=== PATIENT | female | born 1965 | race Caucasian/White ===

== ENCOUNTER → 2019-09-24 12:02 | Outpatient (BNVA) | payer OTHER, SELFPAY | PROVIDERS: Visit Provider Nurse Practitioner Family | DX: J02.9 Acute pharyngitis, unspecified (principal); R05 Cough; J06.9 Acute upper respiratory infection, unspecified; Z20.828 Contact with and (suspected) exposure to other viral communicable diseases | CPT/HCPCS: 87071; 87400; 87635; 87880 ==

== ENCOUNTER 2020-03-04 07:30 | Emergency (ER) | payer SELFPAY ==
[2020-03-04 07:32] VITALS: BP 126/77; PULSE 110; RESP 20; TEMP 36.5; O2SAT 99; BMI 20.5
--- NOTE | 2020-03-04 07:46 | ECG_ITS ---
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 Measurements Intervals [facility] Rate: 98 P: AK: -1 QRS: 76 QRSD: 86 T: 81 QT: 336 QTc: 430 Interpretive Statements Sinus rhythm ABNORMAL RHYTHM ECG No previous ECG available for comparison Electronically Signed On 03-04-2020 10:34:52 CDT by Kelvin Loazno M.D. [email or web address]
--- NOTE | 2020-03-04 07:50 | W.ED.CHESTPA ---
HPI - Chest Pain General: Chief Complaint: Chest Pain Stated Complaint: CHEST PAIN Time Seen by Provider: 03/04/20 07:36 Source: patient Mode of arrival: ambulatory Limitations: no limitations History of Present Illness: HPI narrative: flu like symptoms on Fri (4 days ago) with intermittent nausea, CP this AM and right arm pain MD complaint: chest pain Onset (ago): day(s) (1) Quality: tightness Associated symptoms: Reports fever(s) (2 days ago ) and nausea (intermittent ); Deny abdominal pain, diaphoresis or dyspnea Review of Systems Const: Reports: fever(s) (2 days ago ); Denies: diaphoresis ENMT: Denies: throat pain Card: Reports: chest pain Resp: Denies: dyspnea GI: Reports: nausea (intermittent ); Denies: abdominal pain Neuro: Reports: numbness in extremities (right arm (resolved) ); Denies: headache(s) PFSH ED PFSH: Social History Smoking and tobacco status: current every day smoker Alcohol intake: current Physical Exam Const: COMMON NORMALS: no acute distress, patient oriented x3, no limitations and alert GENERAL APPEARANCE: cooperative and comfortable ORIENTATION/CONSCIOUSNESS: Yes awake, Yes oriented to person, Yes oriented to place and Yes oriented to time HENMT: COMMON NORMALS: normocephalic, atraumatic, external ears normal, EAC's normal, TM's normal bilaterally and Normal external nose present HEAD & SCALP: normal to inspection, normocephalic and atraumatic FACE & SINUS: normal facial exam, sinuses nontender and face symmetric NOSE: Normal external nose present, Normal nares present and No nasal discharge present EXTERNAL EAR: Yes external ears normal EXTERNAL AUDITORY CANAL: EAC's normal TYMPANIC MEMBRANE: TM's normal bilaterally MOUTH: Normal oral and palatal mucosa present, lip normal and tongue normal THROAT: posterior oropharynx normal, tonsils normal and uvula midline Eye: COMMON NORMALS: Equal, round and reactive pupils present, EOMs intact bilaterally and conjunctivae normal GENERAL EYE: appearance normal, both eyes and all related structures and normal light reflex EYELID: eyelids normal CONJUNCTIVA: Yes conjunctivae normal PUPIL: Yes Equal, round and reactive pupils present EOM: Yes EOM abnormal DIRECT OPHTHALMOSCOPY: Yes normal light reflex Neck/C-Spine: COMMON NORMALS: full ROM, no lymphadenopathy, supple, no meningeal signs, no JVD and Thyroid normal GENERAL: Yes normal visual inspection THYROID: Thyroid normal CERVICAL SPINE: Yes cervical ROM normal and Yes normal cervical lordosis Lymph: LYMPHATIC: no lymphadenopathy noted Chest: COMMONS NORMALS: normal inspection of the chest and normal palpation of entire chest wall Resp: COMMON NORMALS: normal respiratory effort, No retractions and clear to auscultation bilaterally AUSCULTATION: clear to auscultation bilaterally Cardio: COMMON NORMALS: no JVD, regular rate, regular rhythm, S1 normal heart sound present, S2 normal heart sound present, No gallops present (Cardio), No clicks present (Cardio), No murmurs present (Cardio), No rub (Cardio) and Peripheral pulses 2+ throughout RATE: regular rate RHYTHM: regular rhythm HEART SOUNDS: S1 normal heart sound present and S2 normal heart sound present PERIPHERAL PULSES: Peripheral pulses 2+ throughout GI: COMMON NORMALS: Normal to inspection, nondistended, normoactive bowel sounds present, Soft to palpation, non-tender and no masses PALPATION: Yes Soft to palpation : COMMON NORMALS: Yes no CVA tenderness and Yes normal external appearance BLADDER/KIDNEY EXAM: Yes no CVA tenderness Back/Pelvis: COMMON NORMALS: no CVA tenderness, thoracic and lumbar spine normal to inspection, no thoracic nor lumbar tenderness and thoraco-lumbar ROM normal Extremity: COMMON NORMALS: normal to inspection, full ROM, capillary refill normal, no joint enlargement, no clubbing, cyanosis or edema, no calf tenderness and no pedal edema GENERAL: Yes normal exam except as noted Neuro: COMMON NORMALS: patient oriented x3, moves all extremities, no focal motor deficits, no sensory deficits noted and gait normal SENSORIUM/ORIENTATION: Yes alert, Yes oriented to person, Yes oriented to place and Yes oriented to time MENINGEAL SIGNS: Yes no meningeal signs Psych: COMMON NORMALS: mental status grossly normal, Normal thought process present, cooperative, normal affect, speech normal and activity/motor behavior normal SPEECH: Yes normal speech THOUGHT PROCESS: Normal thought process present Skin: COMMON NORMALS: no rashes or lesions noted, no wounds and turgor normal GENERAL SKIN EXAM: no rashes or lesions noted and turgor normal Course ED course: Pt developed myalgias on Tue with a low grade fever on Tuesday. Tuesday she states some arm numbness and CP and this morning CP is much worse upon presentation to the ER. Pt is notably anxious but appropriately for situation. Will do cardiac work up and rule out covid and flu as pt was exposed at a on of last week. Reevaluation(s): Reevaluation #1: Pt Trop is 6; CP has not resolved completely but pt continues to have myalgias diffusely. COVID rapid negative and Flu negative. Will do PCT send off for COVID and advise to remain at home until results are back. Glucose 194. Pt does not have known diabetes. Likely new diagnosis. Will refer to PCP for further testing. Awaiting second trop to decide if able to DC. At this time DC to home is likely. Time: 09:23 Reevaluation #2: Second trop remains at 6. CXR shows some emphysema changes. Likely viral illness and awaiting COVID PCT to be resulted. Pt sees Dr. Beasley tomorrow at 1300 as new pt. Will continue with discharge and advise to return if feeling worse or CP returns. Time: 10:22 Vital Signs: Vital signs: Vital Signs Temperature 97.7 F 03/04/20 07:32 Pulse Rate 87 03/04/20 09:45 Respiratory Rate 15 03/04/20 09:45 Blood Pressure 118/70 03/04/20 09:45 Pulse Oximetry 98 03/04/20 09:45 MDM - Chest Pain Lab Data: Labs: Lab Results 03/04/20 03/04/20 03/04/20 Range/Units 07:41 07:41 07:41 WBC 3.4 L (4.0-10.0) 10^3/ uL RBC 4.99 (4.1-5.3) 10^6/u L Hgb 14.9 (11.5-15.3) g/dL Hct 45.5 (37.0-47.0) % MCV 91.2 (81-99) fL MCH 29.9 (28.0-34.0) pg MCHC 32.7 (30.0-36.0) g/dL RDW 13.2 (12.1-15.1) % Plt Count 103 L (130-400) 10^3/c mm MPV 11.6 H (7.4-10.4) fL Neut % (Auto) 67.4 % Lymph % (Auto) 27.6 % [place] % (Auto) 4.7 % Eos % (Auto) 0.0 % Baso % (Auto) 0.3 % Neut # (Auto) 2.29 (1.8-7.7) 10^3/u L Lymph # (Auto) 0.9 (0.8-4.8) 10^3/u L [place] # (Auto) 0.2 (0.2-0.9) 10^3/u L Eos # (Auto) 0.0 (0.0-0.8) 10^3/u L Baso # (Auto) 0.0 (0.0-0.1) 10^3/u L Nucleated RBC % (a uto) 0 % Nucleated RBCs # 0.0 /100WBC Sodium 135 L (136-145) mmol/L Potassium 3.7 (3.5-5.1) mmol/L Chloride 97 L (98-107) mmol/L Carbon Dioxide 24 (22-29) mmol/L Anion Gap 17.7 (5-19) BUN 11 (6-20) mg/dL Creatinine 0.8 (0.5-0.9) mg/dL GFR Calculation 74.5 L (90-130) mL/min Glucose 194 H (65-115) mg/dL Calculated Osmolal ity 285 (285-295) mOsm/k g Calcium 9.0 (8.5-10.5) mg/dL Creatine Kinase 82 (26-192) U/L Troponin T Baselin e 6 (0-10) ng/L Troponin T 120 Min [place] (0-10) ng/L Delta Troponin T (0-10) ABS# Influenza Type A A g (Negative) Influenza Type B A g (Negative) SARS-CoV-2 Ag (Rap id) (Negative) 03/04/20 03/04/20 03/04/20 Range/Units 08:05 08:05 09:37 WBC (4.0-10.0) 10^3/ uL RBC (4.1-5.3) 10^6/u L Hgb (11.5-15.3) g/dL Hct (37.0-47.0) % MCV (81-99) fL MCH (28.0-34.0) pg MCHC (30.0-36.0) g/dL RDW (12.1-15.1) % Plt Count (130-400) 10^3/c mm MPV (7.4-10.4) fL Neut % (Auto) % Lymph % (Auto) % [place] % (Auto) % Eos % (Auto) % Baso % (Auto) % Neut # (Auto) (1.8-7.7) 10^3/u L Lymph # (Auto) (0.8-4.8) 10^3/u L [place] # (Auto) (0.2-0.9) 10^3/u L Eos # (Auto) (0.0-0.8) 10^3/u L Baso # (Auto) (0.0-0.1) 10^3/u L Nucleated RBC % (a uto) % Nucleated RBCs # /100WBC Sodium (136-145) mmol/L Potassium (3.5-5.1) mmol/L Chloride (98-107) mmol/L Carbon Dioxide (22-29) mmol/L Anion Gap (5-19) BUN (6-20) mg/dL Creatinine (0.5-0.9) mg/dL GFR Calculation (90-130) mL/min Glucose (65-115) mg/dL Calculated Osmolal ity (285-295) mOsm/k g Calcium (8.5-10.5) mg/dL Creatine Kinase (26-192) U/L Troponin T Baselin e (0-10) ng/L Troponin T 120 Min [place] 6.00 (0-10) ng/L Delta Troponin T 0 (0-10) ABS# Influenza Type A A g Negative (Negative) Influenza Type B A g Negative (Negative) SARS-CoV-2 Ag (Rap id) Negative (Negative) Imaging Data^: Other Xray: Radiologist's impression: [address] [address] XRay Report Signed Patient: June Vasquez Unit #: [id number] : 1965 Age/Sex: 54 / F ADM Date: 03/04/20 Loc: ER Room/Bed: Attending Dr: Ordering Provider/Ordering MD: Mary Johnson NP Date of Service: 03/04/20 Procedure(s): XR chest 1V portable [id number] Accession Number(s): [id number] Report Number: [id number] PROCEDURE INFORMATION: Exam: XR Chest, 1 View Exam date and time: 03/04/2020 8:38 AM Age: 54 years old Clinical indication: Chest pain; Type not specified; Additional info: Cp TECHNIQUE: Imaging protocol: XR of the chest Views: 1 view. COMPARISON: CR Chest 1 [place] [id number] 12/21/2014 1:19 PM FINDINGS: Lungs: Emphysema. Interstitial prominence lung bases likely related to the emphysematous changes. No focal infiltrate. Pleural space: Unremarkable. No pleural effusion. No pneumothorax. Heart/Mediastinum: Unremarkable. No cardiomegaly. Bones/joints: Unremarkable. XR/XR chest 1V portable [id number] IMPRESSION: Emphysema. Interstitial prominence lung bases likely related to the emphysematous changes. No focal infiltrate. Dictated By: Indra Vega MD Signed By: Indra Vega MD Signed Date/Time: 03/04/20911 DD/ 0 Discharge Plan Discharge Patient Disposition: Home Clinical Impression: Atypical chest pain Condition: Stable Prescriptions: No Action Tylenol 325 mg Tablet 650 mg PO PRN RF: 0 Discharge Orders: Discharge Order (Routine); Ordered 03/04/20 Ordered By: Mary Johnson Referrals: Trina Beasley DO [Physician] - 03/05/20 1:00 pm Discharge Diet: Diabetic Discharge Activity: Increase activity as tolerated Activity Restrictions/Additional Instructions: Follow up with Dr. Beasley at 1pm tomorrow without fail. Do not return to work until your COVID screening has been resulted. Your rapid was negative today. Your glucose was 194 while in ER. This is suspicious for diabetes but will require further testing that your new primary doctor can do. Please return for any worsening in symptoms or shortness of breath. Increase water intake. Rest. Tylenol and Ibuprofen alternating for aches. Increase Vitamin C and Zinc to help you feel better, faster. Support your immune system with low sugar, no processed or fast foods, and lots of green, leafy vegetables and clean protein like chicken. Diabetes can be an overwhelming diagnosis. If your labs indicate you do have diabetes, it is important to understand carbohydrates. Dr. Beasley can refer you to a nutritional specialist so you can feel good and control your glucose well without medications for as long as possible. Coding Level of Care Code ED National Account Manager for Chg Fwd Exam Comprehensive
[2020-03-04 08:05] LABS: Basophils % 0.3 %; Hematocrit 45.5 % (37.0-47.0); Hemoglobin 14.9 g/dL (11.5-15.3); Lymphocytes # 0.9 10^3/uL (0.8-4.8); Lymphocytes % 27.6 %; Mean Corpuscular HGB Conc 32.7 g/dL (30.0-36.0); Mean Corpuscular Hemoglobin 29.9 pg (28.0-34.0); Mean Corpuscular Volume 91.2 fL (81-99); Mean Platelet Volume 11.6 fL (7.4-10.4); Monocytes # 0.2 10^3/uL (0.2-0.9); Monocytes % 4.7 %; Neutrophils # 2.29 10^3/uL (1.8-7.7); Neutrophils % 67.4 %; Nucleated Red Blood Cells % 0 %; Platelet Count 103 10^3/cmm (130-400); Red Blood Count 4.99 10^6/uL (4.1-5.3); Red Cell Distribution Width 13.2 % (12.1-15.1); White Blood Count 3.4 10^3/uL (4.0-10.0)
[2020-03-04 08:13] LABS: Troponin(5th) Baseline 6 ng/L (0-10)
[2020-03-04] MEDS: ondansetron 2 mg/ML SDV 2 mL 4 MG IVP (08:14)
[2020-03-04] MEDS: morphine 4 mg/mL SDV 1 mL IVP (08:14)
[2020-03-04] MEDS: aspirin 325 mg Tablet PO (08:14)
--- NOTE | 2020-03-04 08:15 | XRR_ITS ---
PROCEDURE INFORMATION: Exam: XR Chest, 1 View Exam date and time: 03/04/2020 8:38 AM Age: 54 years old Clinical indication: Chest pain; Type not specified; Additional info: Cp TECHNIQUE: Imaging protocol: XR of the chest Views: 1 view. COMPARISON: CR Chest 1 [place] [id number] 12/21/2014 1:19 PM FINDINGS: Lungs: Emphysema. Interstitial prominence lung bases likely related to the emphysematous changes. No focal infiltrate. Pleural space: Unremarkable. No pleural effusion. No pneumothorax. Heart/Mediastinum: Unremarkable. No cardiomegaly. Bones/joints: Unremarkable. XR/XR chest 1V portable [id number] IMPRESSION: Emphysema. Interstitial prominence lung bases likely related to the emphysematous changes. No focal infiltrate.
[2020-03-04 08:16] LABS: Blood Urea Nitrogen 11 mg/dL (6-20); Carbon Dioxide 24 mmol/L (22-29); Chloride 97 mmol/L (98-107); Creatine Phosphokinase 82 U/L (26-192); Glomerular Filtration Rate 74.5 mL/min (90-130); Glucose 194 mg/dL (65-115); Osmolality Calculated 285 mOsm/kg (285-295); Sodium 135 mmol/L (136-145)
--- NOTE | 2020-03-04 08:16 | PC.NURSE ---
COVID swabbed obtained and sent to lab at this time.
[2020-03-04 08:20] LABS: Anion Gap 17.7 (5-19); Potassium 3.7 mmol/L (3.5-5.1)
[2020-03-04 08:36] LABS: Influenza A by IFA Negative (Negative); Influenza B by IFA Negative (Negative); SARS Covid-2 Antigen Negative (Negative)
[2020-03-04 09:45] VITALS: BP 118/70; PULSE 87; RESP 15; O2SAT 98
[2020-03-04] MEDS: sodium chloride 0.9% 500 ML 100 ML IV (09:45)
--- NOTE | 2020-03-04 09:45 | PC.NURSE ---
PTC COVID swabbed obtained and sent to lab.
[2020-03-04 10:07] LABS: Troponin 5 2HR Delta 0 ABS# (0-10)
--- NOTE | 2020-03-04 10:17 | DCPLANNER ---
manager document control was asked to get patient established with Dr. Beasley. manager document control called the office of Dr. Beasley, patient was established and a follow up appointment was scheduled for Tuesday, March 05, 2020 at 1:[address] Beasley. manager document control informed ED physician of the scheduled appointment. Appointment information was added to patients discharge information. manager document control also provided patient with financial planner paperwork for the hospital to fill out and turn in.
[2020-03-04 10:40] VITALS: BP 104/66; PULSE 87; RESP 16; O2SAT 98
[2020-03-05 12:55] LABS: Coronavirus Lab Test PTC Negative
--- NOTE | 2020-03-05 17:28 | PC.NURSE ---
pt contacted and given the results of their COVID test
--- NOTE | 2020-03-15 16:30 | DCPLANNER ---
Patient had a follow up appointment scheduled for 03.05.20 with [facility] [place] [facility] - patient did attend appointment.
== END 2020-03-04 10:40 | disposition home or self-care (01) ==
PROVIDERS: Emergency Provider Nurse Practitioner Family
DX: R07.89 Other chest pain (principal); F17.210 Nicotine dependence, cigarettes, uncomplicated
CPT/HCPCS: 12345; 71045; 80048; 82550; 84484; 85025; 87426; 87635; 87804; 93005; 96361; 96374; 96375; 99283; 99284; J2270; J2405; J7040

== ENCOUNTER → 2020-11-10 16:43 | Outpatient (BNVA) | payer SELFPAY | DX: R39.9 Unspecified symptoms and signs involving the genitourinary system (principal); N39.0 Urinary tract infection, site not specified; R21 Rash and other nonspecific skin eruption | CPT/HCPCS: 81000 ==

== ENCOUNTER → 2021-01-16 16:15 | Outpatient (BNVA) | payer OTHER, SELFPAY | PROVIDERS: Visit Provider Nurse Practitioner | DX: Z20.822 Contact with and (suspected) exposure to COVID-19 (principal) | CPT/HCPCS: 87635 ==

== ENCOUNTER 2022-04-21 10:29 | Outpatient (CLI) | payer MEDICAID, SELFPAY ==
--- NOTE | 2022-04-21 10:33 | CT_ITS ---
WS: [id number] LDCT LUNG CANCER SCREENING TECHNIQUE: Noncontrast CT of the chest with coronal and sagittal reformatted images. CLINICAL INFORMATION: HX OF TOBACCO USE COMPARISON: None. DLP: 79.29 mGy.cm DIvol: Mean CTDIvol: 1.60 (mGy) All CT scans at [facility] use at least one of these dose optimization techniques: automat ed exposure control; mA and/or kV adjustment per patient size (includes targeted exams where dose is matched to clinical indication); or iterative reconstruction. FINDINGS: Both lungs are well aerated. Fibrosis in the lung apices. Normal caliber thoracic aorta. No mediastin al or hilar lymphadenopathy. No axillary lymphadenopathy. Adrenal glands are normal. A few tiny hepatic cysts. Splenic granulomas. Normal GE junction. No axill [place] lymphadenopathy. Mild thoracic kyphosis. A few tiny scattered noncalcified nodules in both lungs measuring less than 5 mm some in a subpleura l location. A few tree-in-bud infiltrates about the RIGHT hilum. A few tree-in-bud opacities in the R IGHT lower lobe laterally. Pleural-based nodule RIGHT lower lobe medially measuring 6 mm. Pleural-bas ed nodule LEFT lower lobe superior segment measuring [address]/CT lung screening [id number] IMPRESSION: LUNG-RADS: 2-Benign Appearance or Behavior FOLLOW UP: 12 Month: Continue annual screening with LDCT
== END 2022-04-21 10:30 | disposition home or self-care (01) ==
LOC: RAD 10:30
PROVIDERS: Visit Provider Family Medicine
DX: Z12.2 Encounter for screening for malignant neoplasm of respiratory organs (principal); Z87.891 Personal history of nicotine dependence
CPT/HCPCS: 71271

== ENCOUNTER 2022-06-10 09:56 | Outpatient (CLI) | payer MEDICAID, SELFPAY ==
--- NOTE | 2022-06-10 10:05 | MM_ITS ---
WS: [id number] Bilateral diagnostic 3D tomosynthesis digital mammogram, 06/10/2022 Clinical Data: LT BR PAIN Comparison: 03/21/2017, 10/21/2015, 01/26/2012, 10/17/2008 Findings: The breasts show heterogeneous density. There are no spiculated masses or clustered calcifications. T here are no secondary signs of carcinoma. MM/[place] [id number] Impression: 1. Negative bilateral mammograms unchanged. 2. Recommend annual screening mammograms. BIRADS: 1-Negative FOLLOW UP: 1 Year Follow-up The CAD baggage security checker was used.
== END 2022-06-10 09:57 | disposition home or self-care (01) ==
LOC: RAD 10:01
PROVIDERS: PCP Family Medicine; Visit Provider Family Medicine
DX: N64.4 Mastodynia (principal)
CPT/HCPCS: 77062; G0279

== ENCOUNTER → 2023-05-28 15:15 | Outpatient (BNVA) | payer MEDICAID, SELFPAY | PROVIDERS: PCP Family Medicine; Visit Provider Registered Nurse Neonatal Intensive Care | DX: R09.89 Other specified symptoms and signs involving the circulatory and respiratory systems (principal); U07.1 COVID-19 | CPT/HCPCS: 87426 ==

== ENCOUNTER 2024-12-11 13:27 | Outpatient (CLI) | payer MEDICAID, SELFPAY ==
--- NOTE | 2024-12-11 13:31 | MM_ITS ---
WS: [id number] BILATERAL 3D TOMOSYNTHESIS DIGITAL SCREENING MAMMOGRAPHY WITH CAD CLINICAL INFORMATION: SCREENING HISTORY: Screening mammogram. No current complaints. COMPARISON: 2022 TECHNIQUE: Bilateral CC and MLO views. FINDINGS: The breasts are composed of heterogeneous fibroglandular density tissue, which can limit the detection of small underlying mass lesions. Few incidental benign calcifications. Dense nodularity upper outer RIGHT breast with partially obscured ovoid nodules progressed compared to the prior examination. Recommend RIGHT breast diagnostic mammography and ultrasound if persistent. Unremarkable LEFT breast. MM/MM [facility] tomosynthesis [id number] IMPRESSION: DENSITY: The breasts are heterogeneously dense, which may obscure small masses. BI-RADS: 0 - Incomplete: Need additional imaging evaluation FOLLOW UP: Need Additional Imaging Recommend RIGHT breast diagnostic mammography and ultrasound if persistent.
== END 2024-12-11 13:28 | disposition home or self-care (01) ==
LOC: RAD 13:29
PROVIDERS: PCP Family Medicine; Visit Provider Family Medicine
DX: Z12.31 Encounter for screening mammogram for malignant neoplasm of breast (principal); R92.333 Mammographic heterogeneous density, bilateral breasts; R92.1 Mammographic calcification found on diagnostic imaging of breast; N63.11 Unspecified lump in the right breast, upper outer quadrant
CPT/HCPCS: 77063; 77067

== ENCOUNTER 2024-12-17 10:17 | Outpatient (CLI) | payer MEDICAID, SELFPAY ==
--- NOTE | 2024-12-17 10:29 | XR_ITS ---
WS: [id number] XR acute abdomen series [id number] REASON FOR EXAM: EPIGASTRIC ABDOMINAL PAIN FINDINGS: No free air or retroperitoneal air. Bowel gas pattern is unremarkable. Liver and spleen are prominent. This was also seen on previous CT examination 01/04/2014. Previous bilateral iliac lymphadenectomy. No mass identified. Lumbar spine and bony pelvis unremarkable. XR/XR acute abdomen series [id number] IMPRESSION: No acute abnormality.
--- NOTE | 2024-12-17 10:29 | CT_ITS ---
WS: [id number] LDCT LUNG CANCER SCREENING TECHNIQUE: Noncontrast CT of the chest with coronal and sagittal reformatted images. CLINICAL INFORMATION: HX OF TOBACCO USE COMPARISON: 2021 DLP: 44.79 mGy.cm DIvol: Mean CTDIvol: 0.60 (mGy) All CT scans at [facility] use at least one of these dose optimization techniques: automated exposure control; mA and/or kV adjustment per patient size (includes targeted exams where dose is matched to clinical indication); or iterative reconstruction. FINDINGS: Previously described subcentimeter nodules are stable. No new suspicious pulmonary parenchymal normalities. Largest nodules RIGHT lower lobe pleural nodule medially measuring 6 mm. LEFT lower lobe pleural nodule measuring 4 mm. Superior segment RIGHT lower lobe measuring 5 mm. Small RIGHT perifissural nodule. Fibrosis in the lung apices. Normal caliber thoracic aorta. No mediastinal or hilar lymphadenopathy. No axillary lymphadenopathy. Adrenal glands are normal. Normal GE junction. Advanced thoracic kyphosis. CT/CT lung screening [id number] IMPRESSION: LUNG-RADS: FOLLOW UP:
== END 2024-12-17 10:18 | disposition home or self-care (01) ==
LOC: RAD 10:22
PROVIDERS: PCP Family Medicine; Visit Provider Family Medicine
DX: Z12.2 Encounter for screening for malignant neoplasm of respiratory organs (principal); R91.8 Other nonspecific abnormal finding of lung field; R10.13 Epigastric pain; Z87.891 Personal history of nicotine dependence
CPT/HCPCS: 71271; 74022

== ENCOUNTER 2024-12-31 12:52 | Outpatient (CLI) | payer MEDICAID, SELFPAY ==
--- NOTE | 2024-12-31 12:55 | MM_ITS ---
WS: [id number] RIGHT 3D TOMOSYNTHESIS DIGITAL MAMMOGRAPHY WITH CAD CLINICAL INFORMATION: MAMMOGRAPHIC EXTREME DENSITY, RIGHT BREAST HISTORY: Additional views TECHNIQUE: 3 views of the right breast were obtained. FINDINGS: The right breast is composed of heterogeneous fibroglandular density tissue, which can limit the detection of small underlying mass lesions. Previously described dense nodularity upper outer RIGHT breast with ovoid nodularity partially compresses out on the spot compression views. Ultrasound described below. ULTRASOUND BREAST RIGHT TECHNIQUE: Ultrasound right breast focused area of concern. CLINICAL INFORMATION: MAMMOGRAPHIC EXTREME DENSITY, RIGHT BREAST FINDINGS: Ultrasound RIGHT breast upper inner and upper outer quadrant. Normal underlying parenchymal tissue. Dense underlying tissue visualized. No suspicious cystic or solid lesions. No lesions to target for biopsy. MM/MM diag RT tomosynthesis [id number] IMPRESSION: DENSITY: The breasts are heterogeneously dense, which may obscure small masses. BI-RADS: 2 - Benign FOLLOW UP: 1 Year Follow-up Recommend return to annual screening mammography.
--- NOTE | 2024-12-31 13:24 | US_ITS ---
WS: [id number] RIGHT 3D TOMOSYNTHESIS DIGITAL MAMMOGRAPHY WITH CAD CLINICAL INFORMATION: MAMMOGRAPHIC EXTREME DENSITY, RIGHT BREAST HISTORY: Additional views TECHNIQUE: 3 views of the right breast were obtained. FINDINGS: The right breast is composed of heterogeneous fibroglandular density tissue, which can limit the detection of small underlying mass lesions. Previously described dense nodularity upper outer RIGHT breast with ovoid nodularity partially compresses out on the spot compression views. Ultrasound described below. ULTRASOUND BREAST RIGHT TECHNIQUE: Ultrasound right breast focused area of concern. CLINICAL INFORMATION: MAMMOGRAPHIC EXTREME DENSITY, RIGHT BREAST FINDINGS: Ultrasound RIGHT breast upper inner and upper outer quadrant. Normal underlying parenchymal tissue. Dense underlying tissue visualized. No suspicious cystic or solid lesions. No lesions to target for biopsy. US/US breast RT limited* [id number] IMPRESSION: DENSITY: The breasts are heterogeneously dense, which may obscure small masses. BI-RADS: 2 - Benign FOLLOW UP: 1 Year Follow-up Recommend return to annual screening mammography.
== END 2024-12-31 12:53 | disposition home or self-care (01) ==
LOC: RAD 12:53
PROVIDERS: PCP Family Medicine; Visit Provider Family Medicine
DX: R92.341 Mammographic extreme density, right breast (principal)
CPT/HCPCS: 76642; 77061; G0279